=== PATIENT | female | born 1955 | race Caucasian/White ===

== ENCOUNTER → 2016-08-04 | Day surgery (SDC) | payer MEDICARE ==
[~2016-08-04] MED LIST: FENTANYL PF 100 MCG/2 ML VIAL. IV PRN; IV NORMAL SALINE 1000ML BAG 1,000 ML IV SCH; LIDOCAINE 1% 1 ML SYRINGE. ID PRN; LIDOCAINE 2% PF Vial for OR 5 ML VIAL. ONE; MIDAZOLAM HCL 2 MG/2 ML VIAL. IV PRN; PROPOFOL 20 ML IV ONE; [UNRECOGNIZED DRUG - REMARK]
--- NOTE | 2016-08-04 14:27 | PDOC ---
BRIEF OPERATIVE NOTE Date: Aug 04, 2016 Pre-Op Diagnosis Dysphagia Post-Op Diagnosis Esophagitis, Gastric ulcer, and hiatal hernia Procedure Performed EGD Surgeon Clif Anesthesia Type: MAC Findings as above Complications None EDWIN TURPIN MD Aug 04, 2016 14:27
--- NOTE | 2016-08-04 14:28 | DISCH ---
DISCHARGE INSTRUCTIONS Condition on Discharge Condition on Discharge: Stable Activity After Discharge Activity Instructions for Disc: No restrictions Diet after Discharge Diet after Discharge: Level I Dysphagia pureed Diet Texture: Dysphagia Vannessaed EDWIN TURPIN MD Aug 04, 2016 14:28
[2016-08-04 15:18] VITALS: BP 138/70
--- NOTE | 2016-08-04 18:21 | OP ---
DATE OF SURGERY: 08/04/2016 PREOPERATIVE DIAGNOSIS: Dysphagia. POSTOPERATIVE DIAGNOSIS: 1. Status post gastric bypass 2. Marginal ulceration, no bleeding. 3. Mid esophageal esophagitis. PROCEDURE: Esophagogastroduodenoscopy. SURGEON: Leonel Turpin M.D. INDICATIONS: The patient is a 60-year-old female who was admitted to the hospital at [facility] with acute renal failure, dehydration and weight loss. She describes several month history of difficulty swallowing solids. Procedure of EGD was explained to the patient in detail. Risks, benefits were also discussed including bleeding and/or perforation of the GI tract. Alternatives of this procedure were also discussed with the patient who seemed to understand and gave verbal and written consent to have the procedure performed. DESCRIPTION OF PROCEDURE: The patient was taken to the GI lab, placed in the left lateral decubitus position. IV sedation was initiated by anesthesia. Once the patient was appropriately sedated, a bite block was placed and an Olympus EGD scope was passed via the hypopharynx into the esophagus, distally stomach and it was noted that the stomach was quite a very small gastric pouch from her gastric bypass, widely patent Randolph-en-Y anastomosis. There was a small ulceration at the anastomosis. No active bleeding. There was a second ulceration that was nearly completely healed. Scope was then retracted into the esophagus and it showed a small hiatal hernia. The distal esophagus appeared normal. The ____ third portion of the esophagus showed some mild esophagitis. The scope was retracted the rest length of the esophagus, which appeared to be normal. Scope was then removed from the patient without any difficulty. Hypopharynx appeared to be normal also. The patient tolerated the procedure well and was taken to recovery in stable condition. ASSESSMENT: 1. Marginal ulcer. 2. Esophagitis. 3. Hiatal hernia. RECOMMENDATIONS: 1. Proton pump inhibitor. 2. Would request a video swallow gram for dysphagia. LEONEL TURPIN MD DR: RAMOS/arnie JOB#: [id number] / [id number]
== END | disposition home or self-care (01) ==
LOC: ENDOS 13:09
PROVIDERS: ATTEND Surgery
DX: K25.9 Gastric ulcer, unspecified as acute or chronic, without hemorrhage or perforation (principal); K20.9 Esophagitis, unspecified; K44.9 Diaphragmatic hernia without obstruction or gangrene; I10 Essential (primary) hypertension; E03.9 Hypothyroidism, unspecified; Z98.84 Bariatric surgery status
CPT/HCPCS: 43235; J2704